=== PATIENT | male | born 1975 | race Caucasian/White ===

== ENCOUNTER → 2019-08-02 | Outpatient (CLI) | payer OTHER ==
--- NOTE | 2019-08-04 23:50 | ECWPNPC ---
PATIENT NAME: PINO LUI : 1975 GENDER: MALE VISIT DATE: 08/02/2019 DISCHARGE DATE: 08/02/19 1700 VISIT LOCKED DATE TIME: PHYSICIAN: MARLEEN ALBERT MD RESOURCE: MARLEEN ALBERT MD REASON FOR APPOINTMENT 1. BACK/BILAT HIP HISTORY OF PRESENT ILLNESS NEW PATIENT CONSULT: WHEN DID YOUR PAIN FIRST START? . BRIEFLY DESCRIBE HOW YOUR PAIN STARTED? . HOW DOES YOUR PAIN CHANGE WITH TIME? . DOES YOUR PAIN AWAKEN YOU FROM SLEEP? . HOW MANY HOURS OF SLEEP DO YOU NORMALLY GET? . ANY DIAGNOSTIC TESTING? . FACILITY WHERE TESTS WERE DONE? ____. PAIN TREATMENT TREATMENT YES CANCER HAVE YOU EVER HAD ANY TYPE OF CANCER?NO NO. 43 YEAR OLD MALE PATIENT WITH A HISTORY OF CHRONIC LOW BACK PAIN. THE PATIENT DESCRIBES HIS PAIN ACHING, HAVE IT ALL THE TIME, PRESSURE WITH A PAIN SCORE OF 6-8/10 DEPENDING ON PHYSICAL ACTIVITY. THE PATIENT STATES HIS PAIN BEGINS IN HIS LOW BACK AND RADIATES DOWN MAINLY HIS RIGHT SIDE AND HIP WITH A PAIN SCORE THERE OF 5-6/10. THE PATIENT REPORTS NO NUMBNESS DOWN EITHER LEG. THE PATIENT SAYS HE HAS BEEN SUFFERING FROM HIS PAIN FOR MANY YEARS, BUT HE EXPERIENCED A SEVERE INCREASE IN HIS LOW BACK PAIN TWO WEEKS AGO WHEN HE WAS USING A CHAINSAW AND MADE A SUDDEN TWISTING MOVEMENT THAT CAUSED HIS NEW SEVERE LOW BACK PAIN. AT THIS MOMENT THE PATIENT CANNOT FUNCTION WITH THIS SEVERE PAIN. PATIENT DENIES UNEXPLAINABLE WEIGHT LOSS, FEVER, CHILLS, NEW CHANGES ON HIS URINARY OR BOWEL CONTROL. THE PATIENT REPORTS HAVING THE SENSATION OF URINARY FREQUENCY. PAIN SCREENING: PATIENT HAS A COMPLAINT OF ACUTE OR CHRONIC PAIN :YES FALL RISK SCREENING: SCREENING : NO FALLS IN THE PAST YEAR. CUMMINS INVENTORY: QUESTIONNAIRE ASSESSEDTBD SCORE VALUE CALCULATED TBD CURRENT MEDICATIONS TAKING IBUPROFEN 800 MG TABLET 1 TABLET WITH FOOD OR MILK NEEDED ORALLY THREE TIMES A DAY TAKING METHOCARBAMOL 500 MG TABLET 2 TABLETS ORALLY TWICE A DAY TAKING MULTIVITAMIN ADULT - TABLET DIRECTED ORALLY DAILY TAKING LORATADINE 10 MG TABLET 1 TABLET ORALLY ONCE A DAY NOT-TAKING OXYCODONE-ACETAMINOPHEN 5-325 MG TABLET (SCHEDULE II DRUG) TAKE 1 2 TABLETS BY MOUTH EVERY 4 6 HOURS NEEDED FOR ACUTE BACK PAIN MAXIMUM DAILY DOSE 8 TABLETS ORAL MEDICATION LIST REVIEWED AND RECONCILED WITH THE PATIENT PAST MEDICAL HISTORY REFLUX INTERVERTEBRAL DISC DISORDER WITH LUMBAR RADICULOPATHY ALLERGIES LATEX (FOR ALLERGY USE ONLY): RASH - ALLERGY SURGICAL HISTORY TONSILLECTOMY/ADENOIDECTOMY 1984 FAMILY HISTORY FATHER: ALIVE 78 YRS, GLAUCOMA, DIAGNOSED WITH DIABETES, HYPERTENSION MOTHER: 73 YRS, PULMONARY EMBOLISM SOCIAL HISTORY GENERAL: TOBACCO USE ARE YOU A:NONSMOKER LATEX QUESTIONNAIRE LATEX ALLERGY : HAVE YOU EVER DEVELOPED ANY TYPE OF REACTION AFTER HANDLING LATEX PRODUCTS SUCH RUBBER GLOVES, CONDOMS, DIAPHRAGMS, BALLOONS, SOCKS, OR UNDERWEAR?YES - PLEASE INDICATE :RUBBER GLOVES LATEX ALLERGY : HAVE YOU EVER DEVELOPED ANY TYPE OF REACTION DURING OR AFTER DENTAL APPOINTMENT, VAGINAL/RECTAL EXAMINATION, SURGICAL PROCEDURE, OR ANY OTHER EXPOSURE?NO LATEX RISK : HAVE YOU EVER HAD ANY DIFFICULTY BREATHING OR HIVES AFTER EATING OR HANDLING ANY FRUITS, OR VEGETABLES; SUCH KIWI, BANANAS, STONE FRUITS, OR CHESTNUTSNO LATEX RISK : DO YOU HAVE A PREVIOUS PERSONAL HISTORY OF MORE THAN NINE SURGERIES, SPINA BIFIDA, OR REPEATED CATHERIZATIONS? NO LATEX RISK : ARE YOU FREQUENTLY EXPOSED TO LATEX PRODUCTS IN YOUR OCCUPATION?NO DATE ASKED : 08/02/2019 ALCOHOL SCREENING DID YOU HAVE A DRINK CONTAINING ALCOHOL IN THE PAST YEAR?YES HOW OFTEN DID YOU HAVE A DRINK CONTAINING ALCOHOL IN THE PAST YEAR?TWO TO FOUR TIMES A MONTH (2 POINTS) HOW MANY DRINKS DID YOU HAVE ON A TYPICAL DAY WHEN YOU WERE DRINKING IN THE PAST YEAR?1 OR 2 (0 POINTS) HOW OFTEN DID YOU HAVE SIX OR MORE DRINKS ON ONE OCCASION IN THE PAST YEAR?LESS THAN MONTHLY (1 POINT) POINTS3 INTERPRETATIONNEGATIVE RECREATIONAL DRUG USE DRUG USE? NONE - 08/02/19 CAFFEINE CAFFEINE USE?YES HOW OFTEN AND HOW MUCH? 1/DAY SPIRITISM [id number] NONE LANGUAGE LANGUAGES SPOKEN:NAURUAN EDUCATION LEVEL OF EDUCATION:[employer]ESSION[employer]/MASTERS/PHD OCCUPATION: ADMINISTRATION. DIET: REGULAR. EXERCISE: NONE, OCCASIONALLY WALKS. MARITAL STATUS: . NEW PATIENT PAIN DIARY PATIENT DESCRIBES PAIN :ACHING, HAVE IT ALL THE TIME, OTHER PRESSURE FROM 0-10, WHAT LEVEL IS YOUR PAIN TODAY?8 08/02/19 PRECIPITATING FACTORS SITTING, TWISTING, BENDING, POSITION CHANGE ALLEVIATING FACTORS LYING OR STANDING, SWAYING, HEAT IMPACT ON FUNCTION DIFFICULT TO WALK UP STAIRS, DRESS, OR PUT ON SOCKS PAIN CLINIC PFS, CLERGY, PUBLIC HEALTH REFERRALS HAS THE PATIENT BEEN EDUCATED REGARDING HIS/HER PLAN OF CARE?YES HAS THE PATIENT BEEN EDUCATED REGARDING PAIN, THE RISK FOR PAIN, THE IMPORTANCE OF EFFECTIVE PAIN MANAGEMENT, AND THE PAIN ASSESSMENT PROCESS?YES ADVANCE DIRECTIVE ADVANCE DIRECTIVE DISCUSSED WITH PATIENT:YES INFORMAION OFFERED AND DECLINED HOSPITALIZATION/MAJOR DIAGNOSTIC PROCEDURE DENIES PAST HOSPITALIZATION REVIEW OF SYSTEMS REVIEWED BY: PROVIDER: MARLEEN ALBERT MD . CONSTITUTIONAL: ANY CHANGE IN YOUR MEDICAL CONDITION? NO . CHILLS NO . FEVER NO . INFECTION: DO YOU HAVE NEW INFECTIONS? NO . DO YOU HAVE HISTORY OF MRSA? NO . MUSCULOSKELETAL: ANY NEW PATTERNS OF PAIN OR NUMBNESS? YES . SYSTEMIC LUPUS NO . GASTROENTEROLOGY: ANY NEW CHANGE IN BOWEL CONTROL? NO . BARRETTS ESOPHAGUS NO . CIRRHOSIS NO . HEPATITIS NO . LIVER FAILURE NO . ACID REFLUX YES . UNEXPLAINED WEIGHT LOSS NO . GENITOURINARY: ANY NEW CHANGE IN BLADDER CONTROL? NO . IS THERE A CHANCE YOU COULD BE ? NO . HEMATOLOGY/LYMPH: DO YOU TAKE ANY BLOOD THINNERS? (FOR EXAMPLE- COUMADIN, PLAVIX, AGGRENOX, PLATEL, PRADAXA, OR XARELTO) NO . WHEN WAS YOUR LAST DOSE? DATE: TIME: . LOW PLATELET COUNT NO . SICKLE CELL DISEASE NO . VON WILLIEBRANDS NO . FACTOR V LEIDEN NO . THALLASEMIA NO . ANEMIA NO . EASY BRUISING NO . NEUROLOGY: HAVE YOU FALLEN IN THE PAST 12 MONTHS? NO . ANY NEW EXTREMITY NUMBNESS OR WEAKNESS? NO . HEAD INJURY NO . DEMENTIA NO . CEREBRAL PALSY NO . MULTIPLE SCLEROSIS NO . DIZZINESS NO . HEADACHE NO . STROKES NO . VERTIGO NO . CARDIOLOGY: DO YOU HAVE A PACEMAKER OR DEFIBRILLATOR? NO . ANGINA NO . HEART ATTACK NO . HEART SURGERY NO . CONGESTIVE HEART FAILURE/FLUID OVERLOAD NO . CHEST PAIN NO . HIGH BLOOD PRESSURE NO . IRREGULAR HEART BEAT NO . RESPIRATORY: HAVE YOU BEEN SICK IN THE PAST WEEK? NO . FEVER NO . FLU LIKE SYMPTOMS? NO . CPAP NO . BYPAP NO . ASTHMA NO . EMPHYSEMA NO . CHRONIC LUNG DISEASES NO . SHORTNESS OF BREATH ON EXERTION NO . DO YOU USE ANY TYPE OF TOBACCO (SMOKE, SMOKELESS, CHEW)? NO . COUGH NO . SNORING NO . INTEGUMENTARY: DO YOU HAVE ANY RASHES OR OPEN SORES? NO . ALLERGIC/IMMUNO: ARE YOU ALLERGIC TO IV DYE? NO . ANY NEW ALLERGIES? NO . PSYCHIATRIC: DO YOU HAVE THOUGHTS OF HURTING YOURSELF OR SOMEONE ELSE? NO . ARE YOU ABUSED, NEGLECTED, OR IN AN UNSAFE ENVIRONMENT? NO . ENDOCRINOLOGY: ARE YOU DIABETIC? NO . THYROID DISORDER NO . OTHER: DO YOU NEED ANY PRESCRIPTIONS? NO . IF YES, PLEASE LIST: ____ . ANY NEW PROBLEMS WITH YOUR MEDICATIONS? NO . WHEN DID YOU LAST EAT? ____ . WHEN DID YOU LAST DRINK? ____ . WHAT DID YOU LAST DRINK? ____ . NAME OF PERSON DRIVING YOU HOME? ____ . DO YOU HAVE ANY OTHER QUESTIONS OR CONCERNS NO . VITAL SIGNS WT 263 LBS, HT 71 IN, BMI 36.68 INDEX, BP 118/79 MM HG, HR 92 /MIN, RR 18 /MIN, TEMP 98.1 F, OXYGEN SAT % 98, SAFE IN ENV? (Y/N) Y, REVIEWED BY: DARCY. EXAMINATION GENERAL EXAMINATION: PATIENT IS ALERT O X 3 AND COOPERATIVE. LUNGS CLEAR, TO AUSCULTATION. HEART: NO MURMURS OR GALLOPS; FACIAL CRANIAL NERVES ARE GROSSLY NORMAL. GOOD SYMMETRY OF FACIAL MUSCLE MOVEMENT. NORMAL VISUAL LITTLE. PATIENT WALKS WITH NARROW GAIT AND STIFFNESS. PRESENCE OF BANDS OF TISSUE AND TRIGGER POINTS WITH RESTRICTION OF MOVEMENT OF THE LOW BACK. PAIN INCREASES OVER THE LUMBAR FACET JOINTS WITH EXTENSION AND LATERAL ROTATION OF THE BACK. STRAIGHT LEG RAISE OF BOTH LEGS ARE NEGATIVE FOR RADICULOPATHY. MRI OF THE LUMBAR SPINE DONE ON 07/30/2019 SHOWS FACET ARTHROPATHY CHANGES, LARGE BULGING DISCS, OSTEOPHYTE DISC COMPLEX, AND MODERATE CANAL STENOSIS AT L4-L5 AND L5-S1 LEVELS. ASSESSMENTS SPONDYLOSIS WITHOUT MYELOPATHY OR RADICULOPATHY, LUMBAR REGION - M47.816 (PRIMARY) LOW BACK PAIN - M54.5 OTHER CHRONIC PAIN - G89.29 TREATMENT SPONDYLOSIS WITHOUT MYELOPATHY OR RADICULOPATHY, LUMBAR REGION CLINICAL NOTES: WE DISCUSSED SEVERAL ISSUES WITH MR. LUI'S PAIN MANAGEMENT CASE. DUE TO THE LUMBAR SPONDYLOSIS AND ACUTE PAIN OVER THE LAST FEW WEEKS, I WOULD LIKE TO MOVE FORWARD WITH A BILATERAL L4-L5 AND L5-S1 LUMBAR THERAPEUTIC FACET BLOCK, AT THIS TIME URGENT. WE DISCUSSED THE BENEFITS, RISKS, AND ALTERNATIVES OF THE INJECTION AND THE PATIENT WOULD LIKE TO PROCEED. THE PATIENT WILL FOLLOW UP IN SEVERAL WEEKS AFTER HIS INJECTION TO SEE HOW IT IS HELPING WITH HIS PAIN. WE DISCUSSED THE CONCERNS OF STEROIDS POTENTIALLY CAUSING IMMUNOSUPPRESSION SHORT-TERM AND FURTHER COMPLICATIONS IF THEY COME IN CONTACT WITH COVID-19, SUCH WORSE SYMPTOMS OR . THE PATIENT UNDERSTANDS, WOULD LIKE TO PROCEED WITH THE PROCEDURE, AND AGREES HE WILL BE CAREFUL BY SELF ISOLATING FOR A WEEK OR MORE. I DISCUSSED WITH THE PATIENT AND WE AGREED ON PERFORMING THE PROCEDURE WITH A LESS POTENT STEROID THAT WOULD LESSEN THE RISK OF IMMUNOSUPPRESSION. I WILL REQUEST FOR THIS PROCEDURE TO BE DONE SOON POSSIBLE. INSTRUCTIONS WERE GIVEN, QUESTIONS WERE ANSWERED, PATIENT REPORTS UNDERSTANDING AND AGREES WITH THE PLAN. I, WALLACE PEREIRA, DOCUMENTED THE ABOVE INFORMATION ACTING A SCRIBE FOR DR. ALBERT. I HAVE REVIEWED THE ABOVE DOCUMENT, WRITTEN BY WALLACE MERCEDES AND I VERIFY THAT IT IS ACCURATE. DEAR GUILLE GOLD: THANK YOU FOR YOUR KIND REFERRAL OF PINO LUI. IF YOU WANT TO DISCUSS HIS CASE WITH ME PLEASE CALL ME AT THE PAIN CENTER AT [phone]. SINCERELY, MARLEEN ALBERT MD PAIN MEDICINE . OTHERS NOTES: FACET JOINT INJECTION MATERIAL WAS PRINTED. PREVENTIVE MEDICINE PAIN CLINIC TEACHING: PROCEDURE TEACHING PRINTED INFORMATION ON A FACET BLOCK GIVEN TO AND REVIEWED WITH PT. ALONG WITH PRINTED PRE-PROCEDURE INSTRUCTIONS AND PT. VERBALIZED UNDERSTANDING. AD. PROCEDURE CODES G8427 CURRENT MEDS W/DOSAGES DOCUMENTED G8730 PAIN ASSESS POS TOOL F/U PLAN DOC FA211 ESTABILISHED PATIENT [facility] CHARGE DISPOSITION & COMMUNICATION FOLLOW UP 3 WEEKS ELECTRONICALLY SIGNED BY MARLEEN ALBERT MD, MD ON 08/04/2019 AT 12:26 PM EDT DISCLAIMER : THIS IS A VISIT SUMMARY EXTRACTED FROM THE [employer] CHART. IT IS NOT A COPY OF THE [employer] PROGRESS NOTE. CINTHYAD
== END ==
LOC: M PAIN 15:00
PROVIDERS: ATTEND Anesthesiology
DX: M47.816 Spondylosis without myelopathy or radiculopathy, lumbar region (principal); M54.5 Low back pain; G89.29 Other chronic pain; Z79.899 Other long term (current) drug therapy; Z91.040 Latex allergy status